=== PATIENT | male | born 1955 | race Caucasian/White ===

== ENCOUNTER 2018-08-27 07:09 | Inpatient (IN) | payer OTHER ==
[2018-08-27 07:39] LABS: PLATELET COUNT 218 10^3/uL (150-400)
--- NOTE | 2018-08-27 08:35 | EDPHY ---
H & P Stated Complaint: fever, weakness Time Seen by Provider: 08/27/18 07:33 HPI/ROS: CHIEF COMPLAINT: Cloudy urine, weakness HISTORY OF PRESENT ILLNESS: 63-year-old male with multiple sclerosis presents with cloudy urine and weakness. Onset of generalized weakness yesterday. He is in a wheelchair and last evening he fell while trying to transfer from the bed to the wheelchair. He called for help and someone helped him get back in to bed. This morning, he continued to feel weak and again fell while trying to transfer. Denies injury with falls. Cloudy urine x2 days, no fever. Associated with nausea. No cough, abdominal pain or vomiting. REVIEW OF SYSTEMS: complete 10 point ROS reviewed and is negative except for the noted elements in the HPI Source: Patient - Medical/Surgical History Hx Asthma: No Hx Chronic Respiratory Disease: No Hx Diabetes: No Hx Cardiac Disease: No Hx Renal Disease: No Hx Cirrhosis: No Hx Alcoholism: No Hx HIV/AIDS: No Hx Splenectomy or Spleen Trauma: No Other PMH: MS - Social History Smoking Status: Never smoked Alcohol Use: Sober Additional Social History: Lives alone in own home - Physical Exam Exam: General Appearance: Alert, pleasant, nontoxic, generalized weakness Eyes: Pupils equal and round, no conjunctival pallor or injection ENT, Mouth: Mucous membranes moist Neck: Normal inspection Respiratory: Lungs are clear to auscultation Cardiovascular: Regular rate and rhythm Gastrointestinal: Abdomen is soft and nontender Neurological: A&O, nonfocal exam, generalized weakness Skin: Warm and dry Extremities: Multiple linear abrasions on the lower legs Psychiatric: Mood and affect normal Constitutional: Initial Vital Signs Temperature (C) 36.9 C 08/27/18 07:12 Heart Rate 87 08/27/18 07:12 Respiratory Rate 18 08/27/18 07:12 Blood Pressure 135/81 H 08/27/18 07:12 O2 Sat (%) 97 08/27/18 07:12 O2 Delivery Mode Room Air Allergies/Adverse Reactions: clindamycin Allergy (Verified 08/27/18 07:15) erythromycin base Allergy (Verified 08/27/18 11:12) Hives Sulfa (Sulfonamide Antibiotics) Allergy (Verified 08/27/18 07:15) Home Medications: Medication Instructions Recorded Azelastine [Astelin Nasal [place] 2 sprays EACHNARE BID 08/27/18 (RX)] Baclofen [Baclofen 20 mg (*)] 20 mg PO QID 08/27/18 FLUoxetine [Prozac 20 MG (*)] 20 mg PO DAILY 08/27/18 Methenamine Vielka [Hiprex 1 gm (*)] 1 gm PO BID 08/27/18 Ranitidine HCl [Zantac] 300 mg PO BID 08/27/18 tiZANidine HCL [Zanaflex 2MG (*)] 2 mg PO TID 08/27/18 tiZANidine HCL [Zanaflex 2MG (*)] 4 mg PO HS PRN 08/27/18 Medical Decision Making - Diagnostics Imaging Results: Imaging Impressions Chest X-Ray 08/27/18 07:34 Impression: 1. No acute findings in the chest. 2. Possible emphysema/COPD. Imaging: I viewed and interpreted images myself ED Course/Re-evaluation: Patient with multiple sclerosis presents with generalized weakness. Does not meet SIRS criteria. Urinalysis consistent with urinary tract infection. A urine culture was sent and ceftriaxone 1 g IV given. The hospitalist service was consulted for admission. Differential Diagnosis: Differential diagnosis includes pyelonephritis, cholecystitis, influenza, cellulitis, pneumonia, abscess, meningitis. - Data Points Laboratory Results: Laboratory Results 08/27/18 07:30 08/27/18 07:30 08/27/18 08/27/18 08/27/18 08:05 07:45 07:30 WBC RBC Hgb Hct MCV MCH MCHC RDW Plt Count MPV Neut % (Auto) Lymph % (Auto) [place] % (Auto) Eos % (Auto) Baso % (Auto) Nucleat RBC Rel Count Absolute Neuts (auto) Absolute Lymphs (auto) Absolute Monos (auto) Absolute Eos (auto) Absolute Basos (auto) Absolute Nucleated RBC Immature Gran % Immature Gran # VBG Lactic Acid 1.2 mmol/L mmol/L (0.7-2.1) Sodium Potassium Chloride Carbon Dioxide Anion Gap BUN Creatinine Estimated GFR Glucose Calcium Urine Color YELLOW Urine Appearance MODERATELY TURBID Urine pH 5.0 (5.0-7.5) Ur Specific [place] 1.014 (1.002-1.030) Urine Protein 2+ H (NEGATIVE) Urine Ketones TRACE H (NEGATIVE) Urine Blood 3+ H (NEGATIVE) Urine Nitrate NEGATIVE (NEGATIVE) Urine Bilirubin NEGATIVE (NEGATIVE) Urine Urobilinogen NEGATIVE EU EU (0.2-1.0) Ur Leukocyte Esterase 3+ H (NEGATIVE) Urine RBC 25-50 /hpf H /hpf (0-3) Urine WBC 50-182 /hpf H /hpf (0-3) Ur Epithelial Cells TRACE /lpf /lpf (NONE-1+) Amorphous Sediment PRESENT /hpf /hpf (NONE-1+) Urine Bacteria 1+ /hpf H /hpf (NONE SEEN) Urine Mucus 1+ /lpf /lpf (NONE-1+) Urine Sperm PRESENT /hpf /hpf (NONE SEEN) Urine Glucose NEGATIVE (NEGATIVE) Nasal Influenza A PCR NEGATIVE FOR FLU A (NEGATIVE) Nasal Influenza B PCR NEGATIVE FOR FLU B (NEGATIVE) 08/27/18 08/27/18 07:30 07:30 WBC 10.12 10^3/uL H 10^3/uL (3.80-9.50) RBC 4.77 10^6/uL 10^6/uL (4.40-6.38) Hgb 13.7 g/dL g/dL (13.7-17.5) Hct 40.6 % % (40.0-51.0) MCV 85.1 fL fL (81.5-99.8) MCH 28.7 pg pg (27.9-34.1) MCHC 33.7 g/dL g/dL (32.4-36.7) RDW 13.2 % % (11.5-15.2) Plt Count 218 10^3/uL 10^3/uL (150-400) MPV 9.8 fL fL (8.7-11.7) Neut % (Auto) 80.0 % H % (39.3-74.2) Lymph % (Auto) 10.0 % L % (15.0-45.0) [place] % (Auto) 8.7 % % (4.5-13.0) Eos % (Auto) 0.6 % % (0.6-7.6) Baso % (Auto) 0.4 % % (0.3-1.7) Nucleat RBC Rel Count 0.0 % % (0.0-0.2) Absolute Neuts (auto) 8.10 10^3/uL H 10^3/uL (1.70-6.50) Absolute Lymphs (auto) 1.01 10^3/uL 10^3/uL (1.00-3.00) Absolute Monos (auto) 0.88 10^3/uL H 10^3/uL (0.30-0.80) Absolute Eos (auto) 0.06 10^3/uL 10^3/uL (0.03-0.40) Absolute Basos (auto) 0.04 10^3/uL 10^3/uL (0.02-0.10) Absolute Nucleated RBC 0.00 10^3/uL 10^3/uL (0-0.01) Immature Gran % 0.3 % % (0.0-1.1) Immature Gran # 0.03 10^3/uL 10^3/uL (0.00-0.10) VBG Lactic Acid Sodium 137 mEq/L mEq/L (135-145) Potassium 4.0 mEq/L mEq/L (3.3-5.0) Chloride 104 mEq/L mEq/L (97-110) Carbon Dioxide 22 mEq/l mEq/l (22-31) Anion Gap 11 mEq/L mEq/L (6-14) BUN 16 mg/dL mg/dL (7-23) Creatinine 0.7 mg/dL mg/dL (0.7-1.3) Estimated GFR > 60 Glucose 112 mg/dL H mg/dL (70-100) Calcium 9.5 mg/dL mg/dL (8.5-10.4) Urine Color Urine Appearance Urine pH Ur Specific [place] Urine Protein Urine Ketones Urine Blood Urine Nitrate Urine Bilirubin Urine Urobilinogen Ur Leukocyte Esterase Urine RBC Urine WBC Ur Epithelial Cells Amorphous Sediment Urine Bacteria Urine Mucus Urine Sperm Urine Glucose Nasal Influenza A PCR Nasal Influenza B PCR Medications Given: Bisacodyl (Dulcolax Rectal) 10 mg CA DAILY PRN; Protocol PRN Reason: Constipation Stop: 02/23/19 09:44 Last Admin: 08/27/18 12:08 Dose: 10 mg Discontinued Medications Ceftriaxone Sodium/Dextrose (Rocephin 1 Gm (Premix)) 50 mls @ 100 mls/hr IV EDNOW ONE PRN Reason: Protocol Stop: 08/27/18 08:27 Last Admin: 08/27/18 08:09 Dose: 50 mls Departure - Departure Disposition: [facility] Acute Clinical Impression: Multiple sclerosis UTI (urinary tract infection) Qualifiers: Urinary tract infection type: acute cystitis Hematuria presence: without hematuria Qualified Code(s): N30.00 - Acute cystitis without hematuria Condition: Fair
[2018-08-27] MEDS ORDERED: ONDANSETRON 4 MG/2 ML VIAL IVP PRN (09:29)
[2018-08-27] MEDS ORDERED: ACETAMINOPHEN 325 MG TAB PO PRN (09:29)
[2018-08-27] MEDS ORDERED: LACTULOSE 20 GM/30 ML UDCUP PO PRN (09:45)
[2018-08-27] MEDS ORDERED: MAGNESIUM HYDROXIDE 30 ML UDCUP PO PRN (09:45)
[2018-08-27] MEDS ORDERED: POLYETHYLENE GLYCOL 3350 17 GM PKT PO PRN (09:45)
[2018-08-27] MEDS ORDERED: BISACODYL 10 MG SUPP PR PRN (09:45)
--- NOTE | 2018-08-27 10:32 | GHP ---
DATE OF ADMISSION: 08/27/2018 CHIEF COMPLAINT: Weakness. HISTORY: Brendan Tarango is a 63-year-old male with multiple sclerosis and neurogenic bladder for whic h he chronically straight caths. About 5 days ago, he noticed his urine became cloudy, although he d id not seek any medical care. He has minimal bladder sensation due to his neurogenic bladder, and wh en he gets UTIs, he typically does not experience any burning or pain. Last night, he got profoundly more weak. He lives independently, but is in motorized wheelchair as he has complete lower extremit y paralysis, but he does do his own transfers. In attempts to transfer over the last 24 hours, he plasencia s fallen multiple times. Eventually, he was on the floor and could not get himself up so he called 9 11. He has a history of recurrent UTIs causing similar weakness episodes, and he has been hospitaliz ed multiple times in the past through a [place] facility. He states typically 48 hours of IV ceftriax one, and his strength recovers, and he is able to go home, and he would like to avoid rehabilitation, if possible. The only difference between previous episodes and this episode is he typically has a f ever, and this time, he does not. PAST MEDICAL HISTORY: 1. Multiple sclerosis. 2. Recurrent UTIs. 3. Neurogenic bladder with chronic straight cath. MEDICATIONS: Please see computer record for full detailed list. ALLERGIES: and sulfa. SOCIAL HISTORY: No smoking. No alcohol. He lives alone. Uses a motorized wheelchair. His toya r is his medical decision maker. His code status is full. REVIEW OF SYSTEMS: Complete review of systems obtained. Review of systems negative regarding consti tutional, HEENT, GI, pulmonary, vascular, , hematology, skin, muscular, endocrine, psych except for positives and negatives as noted under HPI. FAMILY HISTORY: Reviewed, noncontributory to presenting complaint. PHYSICAL EXAMINATION: GENERAL: Well-developed, well-nourished male in no acute distress. VITAL SIG NS: Temperature is 36.9, pulse 87, blood pressure 137/79, satting 95% on room air. EYES: Normal co njunctivae. Pupils react to light. ENT: Normal ears and nose. Hearing intact. Normal teeth. Ryan pharynx moist. NECK: Trachea midline. No thyromegaly. CHEST: Normal respiratory effort. LUNGS: Clear to auscultation bilaterally. CARDIOVASCULAR: Regular rate and rhythm. No murmur. No lower extremity edema. ABDOMEN: Soft, nontender. No hepatosplenomegaly. SKIN: Warm, dry, intact. No r jan. MUSCULOSKELETAL: No cyanosis or clubbing. Strength is 0/5 bilateral lower extremities. NEURO LOGIC: Cranial nerves intact. Decreased sensation light touch. PSYCH: Alert and oriented x3. Nor mal mood and affect. Normal judgment. Normal memory. LABORATORY DATA: White count 10.12, hematocrit 40.6, platelets 218. Sodium 137, potassium 4.0, chlo ride 104, bicarb 22, BUN 14, creatinine 0.7, glucose 112, lactate 1.2. Urinalysis shows 50-182 white blood cells. Chest x-ray is negative. This case was discussed with Dr. Lubna Gregorio in the emergency r oom regarding ER course. ASSESSMENT/PLAN: 1. Urinary tract infection as a complication of chronic straight catheterization. Continue intraven ous ceftriaxone that was started in the emergency room and await urine culture. 2. Multiple sclerosis with acute weakness secondary to acute infection. Will consult Physical Thera py/Occupational Therapy for assistance in helping determine home safety and when he may be able to re turn to his independent living situation. 3. Neurogenic bladder with chronic straight catheterizations. A May catheter was placed in the em ergency room. This should probably be discontinued soon. CODE STATUS: Full. ADMISSION STATUS: Will admit to observation. We will re-evaluate tomorrow regarding the ongoing nee d for hospitalization. DVT PROPHYLAXIS: He is high risk. We will place on subcu Lovenox. /[id number]/MODL
[2018-08-27] MEDS ORDERED: tiZANidine HCL 2 MG TAB PO PRN (12:06)
--- NOTE | 2018-08-27 12:39 | ASMTCMCOM ---
CM Note CM Note Notes: Case Management Chart Review for Discharge Support: Patient is a 63 y/o male with MS and neurogenic bladder, admitted for weakness related to UTI. Patient lives independently, uses a motorized wheelchair and does his own transfers. He called 911 after falling on the floor when transferring & was unable to get up. Patient has [employer], previous hospitalizations have been through a [facility]. PT/OT orders have been placed, we are pending recommendations. CM met with pt, CM asked if he has any history with any Home Health agencies or facilities, he states he does not. He shares he is interested in connecting to non-clinical support, he has talked with [facility] asking for support to connect with a home agency but this person told him they probably will not be able to set anything up until after Thanksgiving. He states his goal is to have someone help with morning transfers. He states his daughter Sara is a support and lives in [place]. Patient goal is to leave in a day or two. CM to follow. Plan: TBD. Date Signed: 08/27/2018 12:39 PM Electronically Signed By:Magi Mariee
[2018-08-27] MEDS: BACLOFEN 20 MG TAB PO SCH ×2 (16:09→20:51)
[2018-08-27] MEDS: tiZANidine HCL 2 MG TAB PO SCH ×2 (16:09→20:51)
[2018-08-27] MEDS: NS 1,000 ML IV SCH (19:39)
[2018-08-27] MEDS: FAMOTIDINE 20 MG TAB PO SCH (20:51)
[2018-08-27] MEDS: METHENAMINE HIPP 1 GM TAB PO SCH (20:51)
[2018-08-27] MEDS: AZELASTINE NASAL MDI EACHNARE SCH (20:52)
[2018-08-27] MEDS: SENNOSIDES/DOCUSATE SODIUM TAB PO SCH (21:44)
[2018-08-28 05:19] LABS: PLATELET COUNT 183 10^3/uL (150-400)
[2018-08-28] MEDS: NS 1,000 ML IV SCH (05:48)
[2018-08-28] MEDS: BACLOFEN 20 MG TAB PO SCH ×4 (05:49→20:38)
[2018-08-28] MEDS: FAMOTIDINE 20 MG TAB PO SCH ×2 (07:38→20:38)
[2018-08-28] MEDS: tiZANidine HCL 2 MG TAB PO SCH ×3 (07:38→20:38)
[2018-08-28] MEDS: METHENAMINE HIPP 1 GM TAB PO SCH ×2 (07:39→20:38)
[2018-08-28] MEDS: FLUoxetine 20 MG CAP PO SCH (07:39)
[2018-08-28] MEDS: AZELASTINE NASAL MDI EACHNARE SCH ×2 (07:39→20:37)
[2018-08-28] MEDS: ENOXAPARIN 40 MG/0.4 ML SYR SC SCH (07:39)
[2018-08-28] MEDS: SENNOSIDES/DOCUSATE SODIUM TAB PO SCH ×2 (07:47→21:35)
--- NOTE | 2018-08-28 11:34 | HOSPPROG ---
Hospitalist Progress Note Assessment/Plan: [facility] Patient Name: CARLITA QUISPE Rpt#: [id number] Unit Number: [id number] Attending/ER Physician: Radha Gallego MD Patient Type: ADM Elsa Adm Date/Source: 08/27/18 EMR Discharge Date: Primary Carrier: [facility] AD[employer] IP Brendan Tarango is a 63-year-old male with multiple sclerosis and neurogenic bladder for which he chronically straight caths. About 5 days ago, he noticed his urine became cloudy, although he did not seek any medical care. Today is my first encounter w the patient, chart reviewed. *UTI -patient frequently straight catheterization -Ceftriaxone -urine cx showing gram neg rods -blood cx pending *MS w acute exacerbation -likely secondary to the above -he lives independently even w complete lower paralysis -PT and OT to see *gait instability w recent multiple falls *neurogenic bladder w chronic straight catheterizations -salter placed in ER -will have dc in the a.m., patient has requested it be left in overnight *Plan: get an abdominal xray - patient concerned he has had ongoing constipation , he will require another midnight stay, He is not near his baseline for getting up oob, and will continue iv abx. Subjective: Mariusz is feeling very weak today. Objective: Vital Signs Temp Pulse Resp BP Pulse Ox 36.8 C 99 16 99/57 L 94 08/28/18 07:11 08/28/18 07:11 08/28/18 07:11 08/28/18 07:11 08/28/18 07:11 Laboratory Results 08/28/18 04:35 08/27/18 08/28/18 08/29/18 05:59 05:59 05:59 Intake Total 2090 Output Total 1050 Balance 1040 - Physical Exam Constitutional: chronically ill appearing, other (thin) Eyes: PERRL Ears, Nose, Mouth, Throat: hearing normal Cardiovascular: regular rate and rhythym Respiratory: no respiratory distress Gastrointestinal: normoactive bowel sounds Musculoskeletal: other (unable to use his lower extremities) Neurologic: AAOx3 Psychiatric: interacting appropriately ICD10 Worksheet Patient Problems: Problems Problem Status Onset Multiple sclerosis Acute UTI (urinary tract infection) Acute
--- NOTE | 2018-08-28 16:48 | PDMN ---
Medical Necessity Medical necessity: MCG M300 UTI A-2 days : ongoing need for IV abx in pt with MS- acute exacerbation, , neurogenic bladder, urine cx showing gram neg rods, further PT, OT, gait instability with freq falls, not at baseline status changed to INPT 08/28/18 for ongoing med nec care of above
[2018-08-28] MEDS: TEMAZEPAM 15 MG CAP PO PRN (21:50)
[2018-08-29] MEDS: BACLOFEN 20 MG TAB PO SCH ×4 (05:59→20:56)
[2018-08-29] MEDS: ENOXAPARIN 40 MG/0.4 ML SYR SC SCH (10:15)
[2018-08-29] MEDS: FAMOTIDINE 20 MG TAB PO SCH ×2 (10:15→20:56)
[2018-08-29] MEDS: SENNOSIDES/DOCUSATE SODIUM TAB PO SCH ×2 (10:16→20:29)
[2018-08-29] MEDS: FLUoxetine 20 MG CAP PO SCH (10:16)
[2018-08-29] MEDS: METHENAMINE HIPP 1 GM TAB PO SCH ×2 (10:17→20:57)
[2018-08-29] MEDS: tiZANidine HCL 2 MG TAB PO SCH ×3 (10:17→20:57)
[2018-08-29] MEDS: AZELASTINE NASAL MDI EACHNARE SCH ×2 (10:24→20:56)
--- NOTE | 2018-08-29 12:11 | ASMTCMCOM ---
CM Note CM Note Notes: 08/29/2018 Case Management Note Pt requesting [facility] re[facility]. Pt insurance is [facility]. Faxed SNF referral to [facility] for appropriateness of SNF placement. Donya will determined location for SNF rehab. Case Management d/c poc: SNF pending auth from [facility]. Case Management to follow. Date Signed: 08/29/2018 12:11 PM Electronically Signed By:Yolis Arevalo RN
--- NOTE | 2018-08-29 12:57 | HOSPPROG ---
Hospitalist Progress Note Assessment/Plan: [facility] Patient Name: CARLITA QUISPE Rpt#: [id number] Unit Number: [id number] Attending/ER Physician: Radha Gallego MD Patient Type: ADM Elsa Adm Date/Source: 08/27/18 EMR Discharge Date: Primary Carrier: [employer] IP Brendan Tarango is a 63-year-old male with multiple sclerosis and neurogenic bladder for which he chronically straight caths. About 5 days ago, he noticed his urine became cloudy, although he did not seek any medical care. *UTI -patient frequently straight catheterization -Ceftriaxone -urine cx ecoli (de la paz sensitive) -blood cx show no growth *MS w acute exacerbation -likely secondary to the above -he lives independently even w complete lower paralysis -PT and OT seeing *gait instability w recent multiple falls -he is very weak from his baseline, suspect he will need a SNF *neurogenic bladder w chronic straight catheterizations -salter placed in ER -Mariusz is requesting it be left in *constipation -reviewed abdominal x ray- confirms constipation *insomnia -Melatonin and prn Restoril *Plan: Reviewed w Mariusz that he should f/u with his MS specialist, may benefit from a supra-pubic catheter. He is very weak and self catheterization is becoming more difficult. Also, reviewed the importance of having regular bowel movements. CM evaluating placement, he is a [facility] patient. Subjective: Mariusz is feeling very weak and worn out. Objective: Vital Signs Temp Pulse Resp BP Pulse Ox 36.9 C 87 18 116/75 94 08/29/18 07:38 08/29/18 07:38 08/29/18 07:38 08/29/18 07:38 08/29/18 07:38 08/28/18 08/29/18 08/30/18 05:59 05:59 05:59 Intake Total 0 Output Total 850 Balance 1200 - Physical Exam Constitutional: chronically ill appearing, other (thin) Eyes: PERRL Ears, Nose, Mouth, Throat: hearing normal Cardiovascular: regular rate and rhythym Respiratory: no respiratory distress, no rales or rhonchi, clear to auscultation Gastrointestinal: normoactive bowel sounds Genitourinary: salter in urethra Skin: warm Musculoskeletal: generalized weakness (overall weak, wheelchair bound, weak w even sitting up) Neurologic: AAOx3 Psychiatric: interacting appropriately ICD10 Worksheet Patient Problems: Problems Problem Status Onset Multiple sclerosis Acute UTI (urinary tract infection) Acute
[2018-08-29] MEDS: MELATONIN 3 MG TAB PO SCH (20:57)
[2018-08-29] MEDS: TEMAZEPAM 15 MG CAP PO PRN (22:00)
[2018-08-30] MEDS: BACLOFEN 20 MG TAB PO SCH ×4 (05:14→21:47)
[2018-08-30] MEDS: AZELASTINE NASAL MDI EACHNARE SCH ×2 (09:42→21:48)
[2018-08-30] MEDS: tiZANidine HCL 2 MG TAB PO SCH ×3 (09:43→21:47)
[2018-08-30] MEDS: FAMOTIDINE 20 MG TAB PO SCH ×2 (09:43→21:47)
[2018-08-30] MEDS: METHENAMINE HIPP 1 GM TAB PO SCH ×2 (09:43→21:47)
[2018-08-30] MEDS: FLUoxetine 20 MG CAP PO SCH (09:44)
[2018-08-30] MEDS: ENOXAPARIN 40 MG/0.4 ML SYR SC SCH (09:45)
--- NOTE | 2018-08-30 16:19 | HOSPPROG ---
Hospitalist Progress Note Assessment/Plan: Brendan Tarango is a 63-year-old male with multiple sclerosis and neurogenic bladder for which he chronically straight caths. About 5 days ago, he noticed his urine became cloudy, although he did not seek any medical care. This is my first encounter, chart reviewed. *UTI -patient frequently straight catheterization -Ceftriaxone d#4, transition to PO Levaquin -urine cx ecoli (de la paz sensitive) -blood cx show no growth *MS w acute exacerbation -likely secondary to the above -he lives independently even w complete lower paralysis -PT and OT seeing *gait instability w recent multiple falls -he is very weak from his baseline, suspect he will need a SNF *neurogenic bladder w chronic straight catheterizations -salter placed in ER -Mariusz is requesting it be left in *constipation -abdominal x ray- confirms constipation *insomnia -Melatonin and prn Restoril *Plan: f/u with his MS specialist, may benefit from a supra-pubic catheter. He is very weak and self catheterization is becoming more difficult. Also, reviewed the importance of having regular bowel movements. CM evaluating placement, he is a [facility] patient DC to rehab soon Subjective: Feeling weak today. Up in wheelchair. Eating. Objective: Vital Signs Temp Pulse Resp BP Pulse Ox 37.1 C 82 16 99/58 L 94 08/30/18 07:38 08/29/18 21:43 08/30/18 07:38 08/30/18 07:38 08/30/18 07:38 08/29/18 08/30/18 08/31/18 05:59 05:59 05:59 Intake Total 2050 350 Output Total 850 1350 Balance 1200 -1000 - Physical Exam Constitutional: not in pain, chronically ill appearing, cachectic Eyes: PERRL, anicteric sclera, EOMI Ears, Nose, Mouth, Throat: moist mucous membranes, hearing normal, ears appear normal Cardiovascular: regular rate and rhythym, No JVD, No edema Respiratory: no respiratory distress, no rales or rhonchi, reduced air movement Gastrointestinal: normoactive bowel sounds, distension, No tenderness, No ascites Genitourinary: salter in urethra Skin: warm, normal color, No mottled Musculoskeletal: no joint effusions, generalized weakness, No normal joint ROM Neurologic: AAOx3 Psychiatric: interacting appropriately, not anxious, not encephalopathic ICD10 Worksheet Patient Problems: Problems Problem Status Onset UTI (urinary tract infection) Acute Multiple sclerosis Acute
[2018-08-30] MEDS: SENNOSIDES/DOCUSATE SODIUM TAB PO SCH ×2 (16:36→20:46)
[2018-08-30] MEDS: TEMAZEPAM 15 MG CAP PO PRN (21:47)
[2018-08-30] MEDS: MELATONIN 3 MG TAB PO SCH (21:47)
[2018-08-31] MEDS: BACLOFEN 20 MG TAB PO SCH ×4 (05:31→20:35)
[2018-08-31] MEDS: FLUoxetine 20 MG CAP PO SCH (08:53)
[2018-08-31] MEDS: FAMOTIDINE 20 MG TAB PO SCH ×2 (08:53→20:35)
[2018-08-31] MEDS: tiZANidine HCL 2 MG TAB PO SCH ×3 (08:53→20:35)
[2018-08-31] MEDS: ENOXAPARIN 40 MG/0.4 ML SYR SC SCH (08:53)
[2018-08-31] MEDS: METHENAMINE HIPP 1 GM TAB PO SCH ×2 (08:54→20:35)
[2018-08-31] MEDS: AZELASTINE NASAL MDI EACHNARE SCH ×2 (08:55→20:38)
[2018-08-31] MEDS: SENNOSIDES/DOCUSATE SODIUM TAB PO SCH ×2 (10:41→20:36)
--- NOTE | 2018-08-31 12:17 | ASMTCMCOM ---
CM Note CM Note Notes: CM has been communicating with the [facility] authorization dept, they are not convinced that pt needs SNF. CM sent the updates they requested. PT/OT state that pt is not safe to return home, DANA w/f. DC Plan: TBD Date Signed: 08/31/2018 12:16 PM Electronically Signed By:Sarah Hill RN
--- NOTE | 2018-08-31 16:23 | HOSPPROG ---
Hospitalist Progress Note Assessment/Plan: Brendan Tarango is a 63-year-old male with multiple sclerosis and neurogenic bladder for which he chronically straight caths. About 5 days ago, he noticed his urine became cloudy, although he did not seek any medical care. *UTI -patient frequently straight catheterization -Ceftriaxone d#5, transition to PO keflex -urine cx ecoli (de la paz sensitive) -blood cx show no growth *MS w acute exacerbation -likely secondary to the above -he lives independently even w complete lower paralysis -PT and OT seeing -SNF rehab *gait instability w recent multiple falls -he is very weak from his baseline, suspect he will need a SNF *neurogenic bladder w chronic straight catheterizations -salter placed in ER -Mariusz is requesting it be left in *constipation -abdominal x ray- confirms constipation -resolving *insomnia -Melatonin and prn Restoril *Plan: f/u with his MS specialist, may benefit from a supra-pubic catheter. He is very weak and self catheterization is becoming more difficult. Also, reviewed the importance of having regular bowel movements. CM evaluating placement, he is a [facility] patient DC to rehab soon reviewed with [facility] DC to rehab in am Subjective: Feeling weak today. No changes. No pain. Objective: Vital Signs Temp Pulse Resp BP Pulse Ox 36.9 C 74 12 123/75 H 94 08/31/18 15:52 08/31/18 15:52 08/31/18 15:52 08/31/18 15:52 08/31/18 15:52 08/30/18 08/31/18 09/01/18 05:59 05:59 05:59 Intake Total 350 900 55 Output Total 7356 351 8009 Balance -1000 0 -1195 - Physical Exam Constitutional: appears nourished, chronically ill appearing, cachectic Eyes: PERRL, anicteric sclera, EOMI Ears, Nose, Mouth, Throat: moist mucous membranes, hearing normal, ears appear normal Cardiovascular: regular rate and rhythym, No JVD, No edema Respiratory: no respiratory distress, no rales or rhonchi, reduced air movement Gastrointestinal: normoactive bowel sounds, No tenderness, No ascites Skin: warm, normal color, No mottled Musculoskeletal: no muscle tenderness, generalized weakness, No normal joint ROM Neurologic: AAOx3 Psychiatric: interacting appropriately, not anxious, not encephalopathic ICD10 Worksheet Patient Problems: Problems Problem Status Onset UTI (urinary tract infection) Acute Multiple sclerosis Acute
--- NOTE | 2018-08-31 17:03 | ASMTCMCOM ---
CM Note CM Note Notes: Received authorization from [facility] for SNF, CM let pt and dtr know will likely dc tomorrow to [facility]. Referral sent DC Plan: SNF Date Signed: 08/31/2018 05:03 PM Electronically Signed By:Sarah Hill RN
[2018-08-31] MEDS: MELATONIN 3 MG TAB PO SCH (20:35)
[2018-08-31] MEDS: TEMAZEPAM 15 MG CAP PO PRN (22:00)
[2018-09-01] MEDS: BACLOFEN 20 MG TAB PO SCH ×3 (05:57→15:01)
[2018-09-01 07:28] VITALS: BP 107/67
[2018-09-01] MEDS: FAMOTIDINE 20 MG TAB PO SCH (08:14)
[2018-09-01] MEDS: METHENAMINE HIPP 1 GM TAB PO SCH (08:14)
[2018-09-01] MEDS: tiZANidine HCL 2 MG TAB PO SCH ×2 (08:14→15:01)
[2018-09-01] MEDS: ENOXAPARIN 40 MG/0.4 ML SYR SC SCH (08:15)
[2018-09-01] MEDS: SENNOSIDES/DOCUSATE SODIUM TAB PO SCH (08:15)
[2018-09-01] MEDS: FLUoxetine 20 MG CAP PO SCH (08:15)
[2018-09-01] MEDS: AZELASTINE NASAL MDI EACHNARE SCH (08:15)
[2018-09-01] MEDS ORDERED: CEPHALEXIN 500 MG CAP PO SCH (09:00)
--- NOTE | 2018-09-01 09:32 | PDIAF ---
- Diagnosis Diagnosis: UTI Code Status: Full Code - Medication Management Discharge Medications: Medications to Continue on Transfer Azelastine [Astelin] 2 sprays EACHNARE BID 08/27/18 [Last Taken Unknown] Baclofen [Baclofen 20 mg (*)] 20 mg PO QID 08/27/18 [Last Taken Unknown] FLUoxetine [Prozac 20 MG (*)] 20 mg PO DAILY 08/27/18 [Last Taken Unknown] Methenamine Vielka [Hiprex 1 gm (*)] 1 gm PO BID 08/27/18 [Last Taken Unknown] Ranitidine HCl [Zantac] 300 mg PO BID 08/27/18 [Last Taken Unknown] tiZANidine HCL [Zanaflex 2MG (*)] 2 mg PO TID 08/27/18 [Last Taken Unknown] tiZANidine HCL [Zanaflex 2MG (*)] 4 mg PO HS PRN 08/27/18 [Last Taken Unknown] Acetaminophen [Tylenol 325mg (*)] 650 mg PO Q4 PRN tab 09/01/18 [Last Taken Unknown] Cephalexin [Keflex (*)] 500 mg PO Q12HRS cap 09/01/18 [Last Taken Unknown] Melatonin [Melatonin 3 MG (*)] 3 mg PO HS tab 09/01/18 [Last Taken Unknown] Polyethylene Glycol 3350 [Miralax 17 gm (*)] 17 gm PO DAILY PRN pkt 09/01/18 [ Last Taken Unknown] Sennosides/Docusate Sodium [Senokot-S] 1 - 2 tab PO BID tab 09/01/18 [Last Taken Unknown] Temazepam [Restoril 15 MG (*)] 15 mg PO HS PRN cap 09/01/18 [Last Taken Unknown ] Discharge Medications: Refer to the Discharge Home Medication list for PRN reason. PICC Care - Routine: N/A - Orders Services needed: Registered Nurse, Physical Therapy, Occupational Therapy Isolation Type: None Diet Recommendation: no restrictions on diet - Follow Up Care Current Providers and Referrals: Patient,NotPresent [Primary Care Provider] -
--- NOTE | 2018-09-01 10:51 | ASMTLACE ---
M[facility] Length of stay for Answers: 3 days current admission Acuity / Level of Answers: Yes Care: Did the patient have an inpatient admission? Comorbidities - select Answers: Other Notes: Multiple all that apply sclerosis; Recurrent [place] Is # of Emergency department Answers: 1-2 visits in the last 6 months Score: 8 Date Signed: 09/01/2018 10:50 AM Electronically Signed By:Sarah Hill RN
--- NOTE | 2018-09-01 16:00 | GDS ---
DISCHARGE DIAGNOSES: 1. Complicated urinary tract infection. 2. Multiple sclerosis with acute exacerbation. 3. Gait instability with multiple falls. 4. Neurogenic bladder with chronic straight catheterization. 5. Constipation. 6. Insomnia. PHYSICAL EXAM: GENERAL: The patient is alert. VITAL SIGNS: Afebrile at 36.8, pulse is 79, respira tory rate 16. Blood pressure is 107/67. He is saturating 96% on room air. I have seen and evaluate d the patient on the day of discharge. HOSPITAL COURSE: The patient is a 63-year-old male who presented to the hospital with complaints of weakness. He was evaluated and diagnosed with: 1. E coli pansensitive urinary tract infection in the setting of chronic straight catheterization an d neurogenic bladder. The patient was started on Rocephin during this hospitalization and has been t ransitioned to Keflex. He will be treated for a total of 14 days for a complicated UTI. 2. Multiple sclerosis with acute exacerbation. This is in the setting of secondary to acute infecti ous process. He is weak and requires physical therapy and occupational therapy and rehabilitation. 3. Gait instability. The patient can transfer from bed to wheelchair normally and has significant w eakness at this time. 4. Neurogenic bladder. May catheter has been placed. This will remain in place at the time of di sposition. 5. Constipation. Aggressive bowel therapy was done. The patient's constipation has resolved. DISPOSITION: He will be discharged to rehabilitation for further strengthening and conditioning give n his acute onset of weakness. There are no pending studies. DISCHARGE MEDICATIONS: Please refer to EMR form. I have started Keflex, as well as melatonin and fara wel therapy for the patient at the time of disposition. He will continue his Keflex through September 11, 2018. I have spent greater than 35 minutes in the care, coordination, and management of the patient's dispo sition. /[id number]/MODL
--- NOTE | 2018-09-01 17:01 | ASDISCHSUM ---
Discharge Information Plan Status:SNF Medically Cleared to Leave: Discharge Date:09/01/2018 03:51 PM CM D/C Disposition:Nursing Home Facility ADT D/C Disposition:Nursing Home Facility Projected Discharge Date:08/31/2018 11:00 AM Transportation at D/C:ALS/BLS Discharge Delay Reason: Follow-Up Date:08/31/2018 11:00 AM Discharge Slot: Final Diagnosis: Placement Information Referral Type:*Shelter/SNF Referral ID:[id number] Provider Name:Marilynn Guzman Address 1[address] Phone Number: Address 2: Fax Number: City:[place] Selection Factors: State:[place] Patient Contact Information Contact Name:DEL Relationship:Daughter Address: Work Phone: Jailene:VICENTA Alternate Phone: [facility] Code:[place] Email: Financial Information Financial Class:Medicare Advantage Plans Primary Plan Desc:[employer] ADV IP Primary Plan Number:[id number] Secondary Plan Desc: Secondary Plan Number: Assessment Information [facility] Progress Note CM Note CM Note Notes: Case Management Chart Review for Discharge Support: Patient is a 63 y/o male with MS and neurogenic bladder, admitted for weakness related to UTI. Patient lives independently, uses a motorized wheelchair and does his own transfers. He called 911 after falling on the floor when transferring & was unable to get up. Patient has [employer], previous hospitalizations have been through a [facility] Facility. PT/OT orders have been placed, we are pending recommendations. CM met with pt, CM asked if he has any history with any Home Health agencies or facilities, he states he does not. He shares he is interested in connecting to non-clinical support, he has talked with [facility] asking for support to connect with a home agency but this person told him they probably will not be able to set anything up until after Thanksgiving. He states his goal is to have someone help with morning transfers. He states his daughter Sara is a support and lives in [place]. Patient goal is to leave in a day or two. CM to follow. Plan: TBD. Date Signed: 08/27/2018 12:39 PM Electronically Signed By:Magi Mariee LACE LACEmmanuelle Length of stay for Answers: 3 days current admission Acuity / Level of Answers: Yes Care: Did the patient have an inpatient admission? Comorbidities - select Answers: Other Notes: Multiple all that apply sclerosis; Recurrent [place] Is # of Emergency department Answers: 1-2 visits in the last 6 months Score: 8 Date Signed: 09/01/2018 10:50 AM Electronically Signed By:Sarah Hill RN [facility] CM Progress Note CM Note CM Note Notes: 08/29/2018 Case Management Note Pt requesting [facility]. Pt insurance is [employer]. Faxed SNF referral to [facility] for appropriateness of SNF placement. Donya will determined location for SNF rehab. Case Management d/c poc: SNF pending auth from [employer]. Case Management to follow. Date Signed: 08/29/2018 12:11 PM Electronically Signed By:Yolis Arevalo RN [facility] CM Progress Note CM Note CM Note Notes: [facility] has been communicating with the [employer] authorization dept, they are not convinced that pt needs SNF. CM sent the updates they requested. PT/OT state that pt is not safe to return home, CM w/f. DC Plan: TBD Date Signed: 08/31/2018 12:16 PM Electronically Signed By:Sarah Hill RN [facility] Progress Note CM Note DANA Note Notes: Received authorization from [employer] for SNF, CM let pt and dtr know will likely dc tomorrow to [facility]. Referral sent DC Plan: SNF Date Signed: 08/31/2018 05:03 PM Electronically Signed By:Sarah Hill RN Intervention Information Intervention Type:*IM-Signed Date of Service:09/01/2018 10:34 AM Patient Type:Inpatient Staff Member:Courtney Del Toro Hours: Discipline: Severity: Comment:
== END 2018-09-01 15:51 | DRG 699 ==
LOC: EDUNIT# → INTOOBSV 08:09 → F3E 08:34 → OBSVTOIN 08-28 15:16
PROVIDERS: ADMIT Internal Medicine; ATTEND Internal Medicine
DX: T83.518A Infection and inflammatory reaction due to other urinary catheter, initial encounter (principal); N39.0 Urinary tract infection, site not specified; B96.20 Unspecified Escherichia coli [E. coli] as the cause of diseases classified elsewhere; G35 Multiple sclerosis; N31.9 Neuromuscular dysfunction of bladder, unspecified; R29.6 Repeated falls; G47.00 Insomnia, unspecified; K59.00 Constipation, unspecified; W05.0XXA Fall from non-moving wheelchair, initial encounter; Z99.3 Dependence on wheelchair; Z87.440 Personal history of urinary (tract) infections
CPT/HCPCS: 96365; 97110-GO; 97163-GP; 97165-GO; 97530-GO; 97530-GP; 97535-GO; G0378; J0696; J1650